=== PATIENT | male | born 1945 | race Caucasian/White ===

== ENCOUNTER 2017-03-10 10:32 | Day surgery (SDC) | payer OTHER ==
[~2017-03-10 10:32] MED LIST: ceFAZolin 2 GM/DEXTROSE 100 ML IV ONE
[2017-03-10] MEDS ORDERED: LR 1,000 ML IV ONE (11:08)
[2017-03-10] MEDS ORDERED: LIDOCAINE 1% 5 ML SDV ID PRN (11:08)
[2017-03-10] MEDS ORDERED: CEFAZOLIN 2 GM/DEXTROSE/100 ML BAG IV ONE (11:11)
[2017-03-10] MEDS ORDERED: LIDOCAINE 1% 300 MG/30 ML SDV ONE (11:41)
[2017-03-10] MEDS ORDERED: BACITRACIN 50,000 UNITS/10 ML SYR IRR ONE (11:42)
[2017-03-10] MEDS ORDERED: BUPIVACAINE 0.5% 30 ML SDV ONE (11:42)
[2017-03-10] MEDS ORDERED: ROPIVACAINE HCL 20 MG/10 ML INJ EP ONE (11:42)
[2017-03-10] MEDS ORDERED: DEXAMETHASONE 4 MG/ML VIAL ONE (11:42)
[2017-03-10] MEDS ORDERED: PROPOFOL/EMULSION 500 MG/50 ML BOTTLE IV ONE (12:04)
--- NOTE | 2017-03-10 14:05 | GOP ---
[f rep st] OPERATIVE REPORT DATE OF OPERATION: 03/10/2017 SURGEON: Lynda Aguilar DPM ANESTHESIA: IV sedation with local. ANESTHESIOLOGIST: Ken Nunez MD. PREOPERATIVE DIAGNOSIS: Dislocated 2nd-hammertoe deformity, right foot. POSTOPERATIVE DIAGNOSIS: Dislocated 2nd-hammertoe deformity, right foot. PROCEDURE PERFORMED: Amputation of the 2nd digit at the level of the 2nd metatarsophalangeal joint, right foot. FINDINGS: DESCRIPTION OF PROCEDURE: The patient presented to the hospital approximately 1.5 hours prior to fo ot surgery after having been n.p.o. past midnight. The patient's preoperative history and physical and all lab studies were reviewed, and there were no contraindications to the proposed procedure. T he patient was given 2 g of Ancef 30 minutes prior to foot surgery. The patient was taken to the OR room and placed on the OR table in a supine position where the appro priate anesthetic agents were administered. This was supplemented with a local block to the right f oot utilizing a total of 15 cc of a 1:1 mixture of Naropin 0.2% and lidocaine 1% plain. The local a nesthetic block was given in a Bhatti block fashion to the 2nd metatarsal region and to the posterior tibial nerve as it coursed through the tarsal tunnel. The right lower extremity was then prepped an d draped in the usual aseptic fashion and covered with a sterile stockinette. A sterile pneumatic a nkle tourniquet was applied and padded well underneath. Utilizing elevation overlying Esmarch link ge the foot was exsanguinated, and the tourniquet was inflated to a pressure of 225 mmHg. The foot was lowered to the orthopedic table. Attention was then directed to the base of the 2nd digit and a racquetball incision was made to the dorsal and plantar aspect of the base of the 2nd digit. The i ncision was deepened through the subcutaneous tissues to the level of the extensor and flexor tendon , taking care to cauterize bleeders as needed. The extensor tendon was then incised and secured, an d the same procedure was performed to the flexor tendon for later approximation. The incision was d eepened to the level of the 2nd metatarsophalangeal joint where the 2nd digit was dislocated and sha rply excised and placed on the back table in 1 piece and sent for pathologic examination. The surgi kristy site was copiously irrigated with a sterile saline bacitracin solution. The capsular tissues we re reapproximated with 2-0 Vicryl, and the flexor and extensor tendons were reapproximated to each o ther utilizing 2-0 Vicryl. The tourniquet was released. There was immediate capillary refill to al l digits, and there was hemostasis. Subcutaneous tissues were reapproximated with 4-0 Vicryl. The skin was reapproximated with 4-0 Prolene utilizing interrupted horizontal mattress sutures and a few simple sutures. A mildly compressive dry sterile gauze dressing was applied with Xeroform, 4 x 4 g auze, Rahel, and an Luis bandage. The patient tolerated the procedure and anesthesia well, was transferred to the recovery room with v ital signs stable and vascular status intact to the right lower extremity. In the recovery room, th e patient received postoperative oral and written home care instructions. The patient was permitted to bear weight on the foot, wearing the Darco shoe at all times. The patient instructed on rest an d elevation the 1st few days after surgery. The procedure went well without complications. The pat ient is scheduled for his 1st postoperative visit in 2 days and is to call the office earlier if any questions or problems should arise. Copy requested to: MD Senia [place] /[id number]/MODL
== END 2017-03-10 14:37 | disposition home or self-care (01) ==
LOC: FSGY 10:32
PROVIDERS: ATTEND Podiatrist
PROC: 0QBQ0ZZ Excision of Right Toe Phalanx, Open Approach (ICD-10-PCS; principal; 2017-03-10 12:00)
DX: M20.41 Other hammer toe(s) (acquired), right foot (principal); I10 Essential (primary) hypertension; N40.0 Benign prostatic hyperplasia without lower urinary tract symptoms; Z85.820 Personal history of malignant melanoma of skin; Z87.891 Personal history of nicotine dependence
CPT/HCPCS: J0690; J1100; J2704; J2795